=== PATIENT | female | born 1990 | race Caucasian/White ===

== ENCOUNTER 2018-12-08 15:42 | Emergency (ER) | payer BC, OTHER ==
[~2018-12-08] VITALS: Ht 154.9 cm; Wt 49.9 kg
[2018-12-08 15:58] VITALS: BP 104/67
--- NOTE | 2018-12-08 15:59 | NUR ---
ED Nurse Note: Pt came in from home due to medial upper abdominal pain w/o n/v/d. Pain 6/10 juan f. Last bowel movement was this morning. Aox4, VSS. Will cont to monitor.
[2018-12-08] MEDS ORDERED: Ketorolac 30mg Inj IV ONE (16:15)
--- NOTE | 2018-12-08 16:19 | Emergency Room Report ---
History of Present Illness General Chief Complaint: Abdominal Pain Source: Patient Present Illness HPI 27-year-old female patient presents the ER complaining of epigastric abdominal pain for the past 4 days. Reports pain is epigastric and right upper quadrant. Denies vomiting or diarrhea. Reports pain is been constant however has become more intermittent today. Reports went and saw her primary care doctor earlier today who told her to go to the ER for the labs and testing. Reports able to pass flatus. Denies dysuria, hematuria. Denies constipation. Denies fever, chest pain, shortness of breath. Denies concern for . Reports pain symptoms that began following food. Denies other aggravating or relieving factors. States his been taking Tylenol [id number] for pain symptoms. Denies drinking alcohol excessively. States has also been taking Nexium. Allergies: Coded Allergies: No Known Allergies (Unverified , 12/08/18) Patient History Past Medical History: see triage record Last Menstrual Period: 12/04/18 Now: No Reviewed Nursing Documentation: PMH: Agreed; PSxH: Agreed Nursing Documentation-PMH Past Medical History: No Stated History Review of Systems All Other Systems: negative except mentioned in HPI Physical Exam Vital Signs Date Time Temp Pulse Resp B/P (MAP) Pulse Ox O2 Delivery O2 Flow Rate FiO2 12/08/18 15:55 98.2 82 12 104/67 99 Room Air Sp02 EP Interpretation: reviewed, normal General Appearance: well appearing, no apparent distress, alert, GCS 15, non- toxic Head: normocephalic, atraumatic Eyes: bilateral eye normal inspection, bilateral eye PERRL ENT: hearing grossly normal, normal pharynx, no angioedema, normal voice, uvula midline, moist mucus membranes Neck: full range of motion, no bony tend Respiratory: lungs clear, normal breath sounds, no rhonchi, no respiratory distress, no accessory muscle use, no wheezing, speaking full sentences Cardiovascular #1: regular rate, rhythm, no edema Gastrointestinal: normal bowel sounds, soft, no mass, non-distended, no guarding, no rebound, tenderness - Right upper quadrant, epigastric, other - Positive Vargas, negative Rovsing Genitourinary: no CVA tenderness Musculoskeletal: back normal, digits/nails normal, gait/station normal, normal range of motion, non-tender Psychiatric: mood/affect normal Skin: no rash Medical Decision Making PA Attestation Dr. Lucero is my supervising Physician whom patient management has been discussed with. Diagnostic Impression: Primary Impression: Abdominal pain Additional Impressions: Nonspecific hepatocellular changes Parapelvic renal cyst ER Course Pt. presents to the ED c/o abdominal pain times 4 days. Ddx considered but are not limited to UTI, cholelithiasis, cholecystitis, pancreatitis, diverticulitis, constipation, peptic ulcer, acid reflux. Negative Rovsing, negative obturator, low suspicion for appendicitis, does not require CT abdomen at this time. Begin abdominal pain workup. Provided patient with pain medication. Vital signs: are WNL, pt. is afebrile ORDERS: CBC, CMP, Lipase, UA, abdominal ultrasound, and medication. ER COURSE: Provide with pain medication. Spoke with patient primary care doctor on the phone, requesting abdominal ultrasound and labs done. CBC and CMP unremarkable, no elevation WBCs or LFTs Lipase within normal limits, low suspicion for pancreatitis UA unremarkable, no signs of infection Urine negative Discuss results with patient Abdominal US Negative for gallstones or dilated bile ducts, low suspicion for cholecystitis or cholelithiasis. Coarsened hepatic echogenicity, nonspecific but suggestive of hepatocellular disease, Incidental finding right renal parapelvic cyst. Discuss results with the patient. Provided patient with copy of results. Instructed patient to followup with PCP and discuss results of report with patient, discuss need for further treatment and referral. Reports continued complaints of pain, provided with [place] in the ER. We will continue to monitor. Likely gastritis versus peptic ulcer, advised patient follow with primary care provider and discuss referral to GI for endoscopy. Will provide patient with Pepcid, previously tried PPI will attempt to relieve symptoms with H2 quinten medication. Advised patient on use of Pepcid and Tums [id number]. Take Tylenol for pain symptoms. Discussed need for H. pylori testing with PCP. Discussed patient care results with patient physician Dr. Morrow, received permission from patient to discuss labs and results with her physician. We will follow-up with her physician next week. Fax copy of ultrasound results and lab results to supervising physician. Patient reports relief of pain symptoms with medication. ER precautions given. DISCHARGE: At this time pt. is stable for d/c to home. Patient resting comfortably, in no acute distress, nontoxic appearing, talking without difficulty. Rx provided to patient. Patient to take medications as instructed Will provide with patient care instructions and any necessary prescriptions. Care plan and follow-up instructions provided. Patient instructed to follow-up with primary care provider in 3 - 5 days. Patient questions asked and answered. Patient reports understanding and agreement to treatment plan. ER precautions given. Patient instructed to return to ER immediately for any new or worsening of symptoms including but not limited to increasing SOB, persistent fever, worsening of pain symptoms, intractable vomiting, blood in stool, urine, and/or emesis. - Please note that this Emergency Department Report was dictated using [employer] nurse technology software, occasionally this can lead to erroneous entry secondary to interpretation by the dictation equipment. Labs Test 12/08/18 16:00 12/08/18 16:20 Urine Color Pale yellow Urine Appearance Clear Urine pH 7 (4.5-8.0) Urine Specific [place] 1.005 (1.005-1.035) Urine Protein Negative (NEGATIVE) Urine Glucose (UA) Negative (NEGATIVE) Urine Ketones Negative (NEGATIVE) Urine Blood 1+ (NEGATIVE) Urine Nitrite Negative (NEGATIVE) Urine Bilirubin Negative (NEGATIVE) Urine Urobilinogen Normal MG/DL (0.0-1.0) Urine Leukocyte Esterase Negative (NEGATIVE) Urine RBC 0-2 /HPF (0 - 2) Urine WBC 0 /HPF (0 - 2) Urine Squamous Epithelial Cells None /LPF (NONE/OCC) Urine Bacteria None /HPF (NONE) Urine HCG, Qualitative Negative (NEGATIVE) White Blood Count 7.9 K/UL (4.8-10.8) Red Blood Count 4.54 M/UL (4.20-5.40) Hemoglobin 12.6 G/DL (12.0-16.0) Hematocrit 38.9 % (37.0-47.0) Mean Corpuscular Volume 86 FL (80-99) Mean Corpuscular Hemoglobin 27.8 PG (27.0-31.0) Mean Corpuscular Hemoglobin Concent 32.5 G/DL (32.0-36.0) Red Cell Distribution Width 12.4 % (11.6-14.8) Platelet Count 305 K/UL (150-450) Mean Platelet Volume 5.7 FL (6.5-10.1) Neutrophils (%) (Auto) 61.8 % (45.0-75.0) Lymphocytes (%) (Auto) 26.3 % (20.0-45.0) Monocytes (%) (Auto) 8.9 % (1.0-10.0) Eosinophils (%) (Auto) 1.4 % (0.0-3.0) Basophils (%) (Auto) 1.6 % (0.0-2.0) Sodium Level 137 MMOL/L (136-145) Potassium Level 3.7 MMOL/L (3.5-5.1) Chloride Level 100 MMOL/L (98-107) Carbon Dioxide Level 26 MMOL/L (21-32) Anion Gap 11 mmol/L (5-15) Blood Urea Nitrogen 9 mg/dL (7-18) Creatinine 0.7 MG/DL (0.55-1.30) Estimat Glomerular Filtration Rate > 60 mL/min (>60) Glucose Level 83 MG/DL (74-106) Calcium Level 9.3 MG/DL (8.5-10.1) Total Bilirubin 0.2 MG/DL (0.2-1.0) Aspartate Amino Transf (AST/SGOT) 15 U/L (15-37) Alanine Aminotransferase (ALT/SGPT) 18 U/L (12-78) Alkaline Phosphatase 56 U/L (46-116) Total Protein 8.7 G/DL (6.4-8.2) Albumin 4.2 G/DL (3.4-5.0) Globulin 4.5 g/dL Albumin/Globulin Ratio 0.9 (1.0-2.7) Lipase 196 U/L (73-393) CT/MRI/US Diagnostic Results CT/MRI/US Diagnostic Results : Imaging Test Ordered: Abdominal ultrasound Impression Negative for gallstones or dilated bile ducts Coarsened hepatic echogenicity, nonspecific but suggestive of hepatocellular disease Incidental finding right renal parapelvic cyst Last Vital Signs Date Time Temp Pulse Resp B/P (MAP) Pulse Ox O2 Delivery O2 Flow Rate FiO2 12/08/18 15:58 98.2 82 12 104/67 99 Room Air Status: improved Disposition: HOME, SELF-CARE Condition: Stable Scripts Famotidine (PEPCID AC) 20 Mg Tablet 20 MG PO BID, #30 TAB Prov: Srinath Craven P.ALeonor 12/08/18 Acetaminophen* (TYLENOL EXTRA STRENGTH*) 500 Mg Tablet 500 MG ORAL Q8H PRN for Prn Headache/Temp > 101, #30 TAB 0 Refills Prov: Srinath Craven 12/08/18 Patient Instructions: Abdominal Pain, Adult, Food Choices for Peptic Ulcer Disease, Gastroesophageal Reflux Disease, Adult Additional Instructions: Followup with primary care provider in 3 -5 days for further treatment and referral to GI. Discuss testing for H.pylori. Keep food journal of foods eaten and times of symptom onset. Take medications as directed. Patient questions asked and answered. Drink fluids as tolerated to prevent dehydration. Take Tylenol OTC for pain, [place]. Avoid spicy foods, avoid dairy, avoid alcohol. Do not eat late night meals. Elevate head of bed when sleeping. ER precautions given, patient instructed to return to ER immediately for any new or worsening of symptoms including but not limited to chest pain, SOB, abdominal pain, blood in vomit. Srinath Craven Dec 08, 2018 16:19
--- NOTE | 2018-12-08 16:20 | NUR ---
ED Nurse Note: Pt wants to hold all medications until verifying insurance with registration.
[2018-12-08 16:22] LABS: APPEARANCE,URINE CLEAR; BILIRUBIN, URINE NEGATIVE (NEGATIVE); COLOR,URINE PALE YELLOW; GLUCOSE, URINE (UA) NEGATIVE (NEGATIVE); KETONES,URINE NEGATIVE (NEGATIVE); LEUKOCYTE ESTERASE ,URINE NEGATIVE (NEGATIVE); NITRITE,URINE NEGATIVE (NEGATIVE); PH,URINE 7 (4.5-8.0); PROTEIN,URINE NEGATIVE (NEGATIVE); UROBILINOGEN,URINE NORMAL MG/DL (0.0-1.0)
[2018-12-08 16:30] LABS: BASOPHILS % (AUTO) 1.6 % (0.0-2.0); EOSINOPHILS % (AUTO) 1.4 % (0.0-3.0); HEMATOCRIT 38.9 % (37.0-47.0); HEMOGLOBIN 12.6 G/DL (12.0-16.0); LYMPHOCYTES % (AUTO) 26.3 % (20.0-45.0); MEAN CORPUSCULAR VOLUME 86 FL (80-99); MONOCYTES % (AUTO) 8.9 % (1.0-10.0); NEUTROPHILS % (AUTO) 61.8 % (45.0-75.0); PLATELET COUNT 305 K/UL (150-450); RED BLOOD COUNT 4.54 M/UL (4.20-5.40); RED CELL DISTRIBUTION WIDTH 12.4 % (11.6-14.8); WHITE BLOOD COUNT 7.9 K/UL (4.8-10.8)
[2018-12-08 16:42] LABS: ANION GAP 11 mmol/L (5-15); BLOOD UREA NITROGEN 9 mg/dL (7-18); CALCIUM 9.3 MG/DL (8.5-10.1); CARBON DIOXIDE 26 MMOL/L (21-32); CHLORIDE 100 MMOL/L (98-107); CREATININE 0.7 MG/DL (0.55-1.30); POTASSIUM 3.7 MMOL/L (3.5-5.1); SODIUM 137 MMOL/L (136-145)
[2018-12-08 16:47] LABS: ALANINE AMINOTRANSFERASE 18 U/L (12-78); ALBUMIN 4.2 G/DL (3.4-5.0); ALBUMIN/GLOBULIN RATIO 0.9 (1.0-2.7); ALKALINE PHOSPHATASE 56 U/L (46-116); ASPARTATE AMINO TRANSFERASE 15 U/L (15-37); BILIRUBIN,TOTAL 0.2 MG/DL (0.2-1.0)
[2018-12-08] MEDS ORDERED: Lidocaine 2% Visc 15ml soln ORAL ONE (17:15)
[2018-12-08] MEDS ORDERED: Dicyclomine HCl 10mg/5ml oral soln ORAL ONE (17:15)
[2018-12-08] MEDS ORDERED: Mylanta II UD 30ml ORAL ONE (17:15)
--- NOTE | 2018-12-08 17:20 | Diagnostic Imaging Report ---
Indication: Abdominal pain Technique: Cornejo-scale and duplex images of the upper abdomen were obtained. Doppler interrogation of the pancreatic and hepatic vessels Comparison: Findings: Gallbladder is unremarkable, without stones, wall thickening, nor pericholecystic fluid. Sonographic Vargas's sign is negative. Common bile duct measures 2 mm in diameter. No intrahepatic biliary ductal dilatation. Liver demonstrates coarsened echogenicity. No focal abnormality. No surface nodularity. Portal vein and hepatic veins are patent. Pancreas is unremarkable. Spleen is unremarkable. Left kidney measures 10.1 cm in length. Right kidney measures 10.5 cm length. Both kidneys demonstrate normal echogenicity. There is no hydronephrosis. The right kidney demonstrates a parapelvic cyst . Non-aneurysmal abdominal aorta . Impression: Negative for gallstones or dilated bile ducts Coarsened hepatic echogenicity, nonspecific but suggestive of hepatocellular disease Incidental finding right renal parapelvic cyst
[2018-12-08] MEDS ORDERED: Norco 5mg/325mg tab ORAL ONE (18:00)
[2018-12-08] MEDS ORDERED: PEPCID AC20 M2 PO (18:09)
[2018-12-08] MEDS ORDERED: TYLENOL EXTRA500 MG ORAL (18:09)
[2018-12-08 18:22] VITALS: BP 111/78
--- NOTE | 2018-12-08 18:23 | NUR ---
ER DISCHARGE NOTE: Patient is cleared to be discharged per ERMD with friend, pt is aox4, on room air, with stable vital signs. pt was given dc and prescription instructions, pt was able to verbalize understanding, pt id band and iv site removed without complications. pt is able to ambulate with steady gait. pt took all belongings.
== END 2018-12-08 18:22 | disposition home or self-care (01) ==
LOC: EMR 16:00
DX: R10.13 Epigastric pain (principal); R10.11 Right upper quadrant pain; N28.89 Other specified disorders of kidney and ureter; K76.9 Liver disease, unspecified
CPT/HCPCS: 36415; 76700; 80053; 81003; 81025; 83690; 85025; 96361; 96374; 96375; 99284; J1885; J2405; S0028